=== PATIENT | male | born 1955 | race Caucasian/White ===

== ENCOUNTER → 2020-02-03 | Outpatient (CLI) | payer OTHER, BC ==
[~2020-02-03] MED LIST: ASPIRIN EC81 M1 PO; CALCIUM500 MG PO; FISH OIL 1,001000 M2 PO; GLIPIZIDE 10 MG10 MG PO; GLUMETZA1000 PO; IRON325 M1 PO; JARDIANCE25 MG PO; LEVOXYL137 MCG PO; LIPITOR80 MG PO; NEURONTIN 300M300 M2 PO; NEXIUM20 MG PO; TRESIBA FL100 UNIT/1 SUBQ; UROXATRAL PO; VICTOZA0.6 MG/0.1 SUBQ; VITAMIN C1000 MG PO; ZESTRIL40 MG PO
== END ==
LOC: LAB 14:48
PROVIDERS: ATTEND Specialist
DX: Z01.812 Encounter for preprocedural laboratory examination (principal); Z20.828 Contact with and (suspected) exposure to other viral communicable diseases

== ENCOUNTER → 2020-02-06 | Outpatient (CLI) | payer OTHER, BC ==
[~2020-02-06] VITALS: Ht 167.6 cm; Wt 155.1 kg
--- NOTE | 2020-02-09 13:56 | P ---
[facility] [place] [address] PROCEDURE REPORT Name: ZAKI PRICE Room #: REG JENNIFER Mascorro#: [id number] Admission: 02/06/20 Attend Phys: Puneet Jeffrey Discharge: Date of : 51 Report #: [id number] THIS REPORT FOR: cc: Joe Connolly Jeffrey J. DO McElhinney, Christian C. MD ~ CC: Puneet Connolly DO DATE OF SERVICE: 02/06/2020 PROCEDURE PERFORMED: Colonoscopy. HISTORY OF PRESENT ILLNESS: The patient is a 64-year-old male with a history of colon polyps, last colonoscopy approximately 5-6 years ago. He denies any symptoms at this time. No family history of colon cancer. DESCRIPTION OF PROCEDURE: The risks and benefits of the procedure were explained to the patient, those risks including but not limited to bleeding, perforation and the risk of sedation. He understood these risks and gave informed consent. Sedation was given using propofol per Anesthesia. Next, a digital rectal exam was initially performed, which was normal. Next, using a standard Olympus colonoscope, the scope was placed in the patient's anus and advanced under direct vision to the cecum. The overall prep was good. The cecum and ileocecal valve were normal in appearance. Ascending, transverse and descending colon were normal. Multiple diverticula were noted in the sigmoid colon. No evidence of inflammation, otherwise normal. The rectal mucosa was normal. On retroflexion, small nonbleeding internal hemorrhoids were noted. Scope was then withdrawn and the procedure terminated. The patient tolerated the procedure well. IMPRESSION: 1. Sigmoid diverticulosis. 2. Internal hemorrhoids. 3. Otherwise, normal colonoscopy. RECOMMENDATIONS: Repeat colonoscopy in 10 years. Thank you for allowing me to participate in his care. <ELECTRONICALLY SIGNED> By: Puneet Rhoades MD 02/09/20 [id number] Puneet Rhoades MD /nt
== END | disposition home or self-care (01) ==
LOC: GI
PROVIDERS: ATTEND Specialist
DX: Z12.11 Encounter for screening for malignant neoplasm of colon (principal); Z86.010 Personal history of colon polyps; K57.30 Diverticulosis of large intestine without perforation or abscess without bleeding; K64.8 Other hemorrhoids; I10 Essential (primary) hypertension; E78.5 Hyperlipidemia, unspecified; E11.9 Type 2 diabetes mellitus without complications; K21.9 Gastro-esophageal reflux disease without esophagitis; G47.30 Sleep apnea, unspecified; Z98.890 Other specified postprocedural states; Z79.899 Other long term (current) drug therapy; Z79.4 Long term (current) use of insulin; Z87.442 Personal history of urinary calculi; Z85.3 Personal history of malignant neoplasm of breast
CPT/HCPCS: 62110; 62900